=== PATIENT | male | born 1990 | race Two or more races ===

== ENCOUNTER 2024-04-08 12:43 | Emergency (ER) | payer MEDICAID, OTHER ==
[~2024-04-08] VITALS: Ht 167.6 cm; Wt 69.6 kg
[2024-04-08] MEDS ORDERED: IBUP-1455 PO (14:40)
[2024-04-08] MEDS ORDERED: PRED20TA2 PO (14:40)
[2024-04-08] MEDS: KETOROLAC TROMETH 30 MG/ML 1ML VIAL IM ONE (14:55)
[2024-04-08] MEDS: HYDROcodone-ACET 5/325MG TAB PO ONE (14:55)
[2024-04-08] MEDS: methylPREDNISolone SOD SUCC 125 MG/2 ML VL IM ONE (14:56)
[2024-04-08 15:29] VITALS: BP 128/78; PULSE 78; RESP 18; TEMP 98.9; O2SAT 98
== END 2024-04-08 15:33 | disposition home or self-care (01) ==
LOC: ER 13:00
DX: M54.42 Lumbago with sciatica, left side (principal)
CPT/HCPCS: 96372; 99284; J1885; J2919